=== PATIENT | female | born 1990 | race African-American/Black ===

== ENCOUNTER → 2018-07-27 | Outpatient (CLI) | payer SELFPAY | LOC: RAD 09:06 | DX: M25.531 Pain in right wrist (principal) ==

== ENCOUNTER 2018-12-06 11:12 | Emergency (ER) | payer BC ==
[~2018-12-06 11:12] MED LIST: CEFDINIR300 MG PO; NORCO 325 MG-51 TA1 PO; PREDNISONE20 M1 PO
[2018-12-06 12:16] VITALS: BP 148/68
== END 2018-12-06 12:15 | disposition home or self-care (01) ==
LOC: ED 11:12
DX: S93.401A Sprain of unspecified ligament of right ankle, initial encounter (principal); X50.1XXA Overexertion from prolonged static or awkward postures, initial encounter; Y93.02 Activity, running
CPT/HCPCS: L4386

== ENCOUNTER 2019-03-18 08:38 | Emergency (ER) | payer BC ==
[~2019-03-18] VITALS: Ht 182.9 cm; Wt 74.1 kg
[2019-03-18 09:28] LABS: HEMATOCRIT 28.1 % (37.0-47.0); HEMOGLOBIN 8.1 g/dL (12.5-16.0); MEAN CELL VOLUME 72 fl (78-100); MEAN PLATELET VOLUME 10.5 fl (7.4-10.4); PLATELET COUNT 359 K/mm3 (130-400); RED BLOOD COUNT 3.88 M/mm3 (4.10-5.30); RED CELL DISTRIBUTION WIDTH 16.2 % (11.5-14.5); WHITE BLOOD COUNT 3.2 K/mm3 (4.8-10.8)
[2019-03-18 09:35] LABS: MEAN CORPUSCULAR HEMOGLOBIN 21 pg (27-31); MEAN CORPUSCULAR HGB CONC 29 g/dL (33-37)
[2019-03-18 09:40] LABS: ALBUMIN 4.3 g/dL (3.5-5.0); POTASSIUM 3.7 mmol/L (3.5-5.1)
[2019-03-18 09:43] LABS: CALCIUM 8.9 mg/dL (8.3-10.5)
[2019-03-18 09:45] LABS: TOTAL BILIRUBIN 0.2 mg/dL (0.2-1.2)
[2019-03-18 10:18] LABS: LYMPHOCYTE 20 % (20-51); MONOCYTE 17 % (3-10); NEUTROPHILS 62 % (42-75)
[2019-03-18 10:19] LABS: HYPOCHROMIA 2+; MICROCYTOSIS 2+; OVALOCYTES 2+; SCHISTOCYTES 1+; TEAR DROP CELLS 1+
[2019-03-18 10:33] LABS: ERYTHROCYTE SEDIMENTATION RATE 13 mm/hr (0-20)
[2019-03-18 10:56] LABS: URINE APPEARANCE CLOUDY; URINE BILIRUBIN NEGATIVE (NEGATIVE); URINE BLOOD NEGATIVE (NEGATIVE); URINE COLOR YELLOW; URINE GLUCOSE NEGATIVE (NEGATIVE); URINE KETONE NEGATIVE (NEGATIVE); URINE LEUKOCYTE ESTERASE TRACE (NEGATIVE); URINE MUCUS PRESENT (NOT PRESENT); URINE NITRATE NEGATIVE (NEGATIVE); URINE PROTEIN(semi-quant) TRACE mg/dL (NEGATIVE); URINE UROBILINOGEN NORMAL (NORMAL)
[2019-03-18 16:01] VITALS: BP 117/60
== END 2019-03-18 15:48 | disposition short-term general hospital (02) ==
LOC: ED 08:38
PROVIDERS: Nurse Practitioner Family
DX: D64.9 Anemia, unspecified (principal); E05.90 Thyrotoxicosis, unspecified without thyrotoxic crisis or storm; R52 Pain, unspecified; F17.210 Nicotine dependence, cigarettes, uncomplicated; Z88.6 Allergy status to analgesic agent
CPT/HCPCS: J0595; J7030

== ENCOUNTER → 2019-03-22 | Outpatient (CLI) | payer BC ==
[2019-03-18 16:01] VITALS: BP 117/60
[2019-03-22 13:19] LABS: EOS % 0.9 % (1.0-5.0); HEMOGLOBIN 9.4 g/dL (12.5-16.0); LYMPH# 0.9 (1.50-4.00); MEAN CELL VOLUME 72 fl (78-100); MEAN PLATELET VOLUME 10.2 fl (7.4-10.4); MONO # 0.5 (0.20-0.80); NEU # 3.1 (1.40-6.50); PLATELET COUNT 278 K/mm3 (130-400); RED BLOOD COUNT 4.58 M/mm3 (4.10-5.30); RED CELL DISTRIBUTION WIDTH 16.6 % (11.5-14.5); WHITE BLOOD COUNT 4.6 K/mm3 (4.8-10.8)
[2019-03-22 13:34] LABS: MEAN CORPUSCULAR HEMOGLOBIN 21 pg (27-31); MEAN CORPUSCULAR HGB CONC 29 g/dL (33-37)
[2019-03-22 13:37] LABS: ALBUMIN 4.5 g/dL (3.5-5.0); POTASSIUM 3.7 mmol/L (3.5-5.1)
[2019-03-22 13:38] LABS: CALCIUM 9.6 mg/dL (8.3-10.5)
[2019-03-22 13:40] LABS: TOTAL PROTEIN 7.9 g/dL (6.4-8.3)
[2019-03-22 13:41] LABS: TOTAL BILIRUBIN 0.2 mg/dL (0.2-1.2)
[2019-03-22 14:01] LABS: D-DIMER 0.1 mg/L FEU (0.15-0.50)
== END ==
LOC: LAB 12:58
PROVIDERS: Physician Assistant
DX: R06.02 Shortness of breath (principal)

== ENCOUNTER 2019-06-06 14:54 | Outpatient (RCR) | payer BC ==
[2019-05-05 17:34] VITALS: BP 118/62
[2019-05-05 18:51] VITALS: BP 122/59
[2019-05-12 17:41] VITALS: BP 140/81
[2019-05-12 19:00] VITALS: BP 116/62
[2019-05-19 17:39] VITALS: BP 118/68
[2019-05-19 18:50] VITALS: BP 129/61
[2019-05-26 17:45] VITALS: BP 111/51
[2019-05-26 18:15] VITALS: BP 103/52
[2019-05-26 18:53] VITALS: BP 110/62
[~2019-06-06] VITALS: Ht 182.9 cm; Wt 74.1 kg
[2019-06-06 15:14] VITALS: BP 116/59
[2019-06-06 16:20] VITALS: BP 116/76
== END 2019-08-03 | disposition still patient (30) ==
LOC: AMSURD
DX: D50.0 Iron deficiency anemia secondary to blood loss (chronic) (principal); Z79.899 Other long term (current) drug therapy
CPT/HCPCS: J2916; J7050

== ENCOUNTER → 2020-01-03 | Outpatient (CLI) | payer BC ==
[~2020-01-03] MED LIST changes: +NAPROSYN500 M1 PO
[2020-01-03 11:37] LABS: HEMATOCRIT 38.9 % (37.0-47.0); HEMOGLOBIN 11.8 g/dL (12.5-16.0); RED BLOOD COUNT 4.64 M/mm3 (4.10-5.30); RED CELL DISTRIBUTION WIDTH 13.3 % (11.5-14.5); WHITE BLOOD COUNT 4.5 K/mm3 (4.8-10.8)
== END ==
LOC: LAB 11:23
PROVIDERS: Family Medicine
DX: D50.9 Iron deficiency anemia, unspecified (principal); M25.562 Pain in left knee; M25.552 Pain in left hip

== ENCOUNTER → 2020-01-19 | Outpatient (CLI) | payer BC ==
[~2020-01-19] MED LIST changes: -NAPROSYN500 M1 PO
== END ==
LOC: RAD 08:30
DX: M81.8 Other osteoporosis without current pathological fracture (principal); M25.562 Pain in left knee; M25.552 Pain in left hip; M25.551 Pain in right hip

== ENCOUNTER → 2020-01-25 | Outpatient (CLI) | payer BC | LOC: RAD 09:15 | DX: M51.17 Intervertebral disc disorders with radiculopathy, lumbosacral region (principal) ==

== ENCOUNTER 2020-03-10 14:59 | Outpatient (RCR) | payer BC ==
[2020-02-24 17:38] VITALS: BP 153/67
[~2020-03-10] VITALS: Ht 182.9 cm; Wt 74.1 kg
[2020-03-10 15:20] VITALS: BP 122/59
[2020-03-10] MEDS ORDERED: NAPROSYN500 M1 PO (15:29)
[2020-03-10 16:35] VITALS: BP 119/55
== END 2020-03-20 | disposition home or self-care (01) ==
LOC: AMSURD
DX: D50.0 Iron deficiency anemia secondary to blood loss (chronic) (principal); Z79.899 Other long term (current) drug therapy
CPT/HCPCS: J2916; J7050

== ENCOUNTER 2020-03-10 17:29 | Emergency (ER) | payer BC ==
[~2020-03-10] VITALS: Ht 182.9 cm; Wt 69.5 kg
[~2020-03-10 17:29] MED LIST changes: +NAPROSYN500 M1 PO
[2020-03-10 18:24] LABS: EOS % 0.5 % (1.0-5.0); HEMATOCRIT 41.7 % (37.0-47.0); HEMOGLOBIN 12.6 g/dL (12.5-16.0); LYMPH# 1.8 (1.50-4.00); MEAN CELL VOLUME 79 fl (78-100); MEAN CORPUSCULAR HGB CONC 30 g/dL (33-37); MONO # 0.6 (0.20-0.80); NEU # 3.3 (1.40-6.50); PLATELET COUNT 348 K/mm3 (130-400); RED BLOOD COUNT 5.28 M/mm3 (4.10-5.30); WHITE BLOOD COUNT 5.7 K/mm3 (4.8-10.8)
[2020-03-10 18:29] LABS: MEAN CORPUSCULAR HEMOGLOBIN 24 pg (27-31); RED CELL DISTRIBUTION WIDTH 18.6 % (11.5-14.5)
[2020-03-10 18:34] LABS: ALBUMIN 4.6 g/dL (3.5-5.0)
[2020-03-10 18:35] LABS: POTASSIUM 4.1 mmol/L (3.5-5.1)
[2020-03-10 18:36] LABS: CALCIUM 9.7 mg/dL (8.3-10.5)
[2020-03-10 18:37] LABS: TOTAL PROTEIN 7.5 g/dL (6.4-8.3)
[2020-03-10 18:39] LABS: TOTAL BILIRUBIN 0.2 mg/dL (0.2-1.2)
[2020-03-10 18:40] LABS: PROTHROMBIN TIME 9.3 SECONDS (9.0-12.0)
[2020-03-10 18:45] LABS: MAGNESIUM 1.99 mg/dL (1.60-2.60)
[2020-03-10 19:41] VITALS: BP 127/72
== END 2020-03-10 19:42 | disposition home or self-care (01) ==
LOC: ED 17:29
PROVIDERS: Nurse Practitioner Family
DX: D50.9 Iron deficiency anemia, unspecified (principal); Z88.0 Allergy status to penicillin; Z88.6 Allergy status to analgesic agent; Z79.1 Long term (current) use of non-steroidal anti-inflammatories (NSAID)
CPT/HCPCS: J2270; J7030

== ENCOUNTER → 2020-08-23 | Outpatient (CLI) | payer BC | LOC: VAS 15:49 | DX: M79.662 Pain in left lower leg (principal) ==

== ENCOUNTER 2020-10-31 15:49 | Emergency (ER) | payer BC ==
[~2020-10-31] VITALS: Ht 182.9 cm; Wt 70.9 kg
[2020-10-31 16:15] VITALS: BP 122/73
== END 2020-10-31 17:08 | disposition left against medical advice (07) ==
LOC: ED 15:49
DX: R05 Cough (principal); R53.81 Other malaise; F17.210 Nicotine dependence, cigarettes, uncomplicated; Z86.19 Personal history of other infectious and parasitic diseases

== ENCOUNTER → 2020-10-31 | Outpatient (CLI) | payer BC | LOC: LAB 12:34 | DX: Z20.822 Contact with and (suspected) exposure to COVID-19 (principal) ==

== ENCOUNTER → 2020-12-20 | Outpatient (CLI) | payer BC | LOC: RAD 07:30 | DX: M17.12 Unilateral primary osteoarthritis, left knee (principal) ==

== ENCOUNTER → 2021-03-22 | Outpatient (CLI) | payer BC | LOC: LAB 15:17 | DX: Z20.822 Contact with and (suspected) exposure to COVID-19 (principal) ==

== ENCOUNTER 2021-03-29 11:06 | Emergency (ER) | payer BC ==
[~2021-03-29] VITALS: Wt 73.5 kg
[2021-03-29 11:46] LABS: BASO # 0.03 K/mm3 (0.02-0.10); EOS # 0.04 K/mm3 (0.04-0.40); EOS % 0.8 % (1.0-5.0); HEMATOCRIT 42.5 % (37.0-47.0); HEMOGLOBIN 13.7 g/dL (12.5-16.0); LYMPH# 1.33 K/mm3 (1.50-4.00); MEAN CELL VOLUME 91 fl (78-100); MEAN CORPUSCULAR HEMOGLOBIN 29 pg (27-31); MEAN CORPUSCULAR HGB CONC 32 g/dL (33-37); MEAN PLATELET VOLUME 10.9 fl (7.4-10.4); MONO # 0.47 K/mm3 (0.20-0.80); NEU # 3.35 K/mm3 (1.40-6.50); PLATELET COUNT 268 K/mm3 (130-400); RED BLOOD COUNT 4.67 M/mm3 (4.10-5.30); RED CELL DISTRIBUTION WIDTH 14.5 % (11.5-14.5); WHITE BLOOD COUNT 5.2 K/mm3 (4.8-10.8)
[2021-03-29 11:55] LABS: ALBUMIN 4.4 g/dL (3.5-5.0)
[2021-03-29 11:56] LABS: POTASSIUM 3.5 mmol/L (3.5-5.1)
[2021-03-29 11:58] LABS: TOTAL PROTEIN 7.5 g/dL (6.4-8.3)
[2021-03-29 12:00] LABS: TOTAL BILIRUBIN 0.2 mg/dL (0.2-1.2)
[2021-03-29 13:10] VITALS: BP 133/77
== END 2021-03-29 13:10 | disposition home or self-care (01) ==
LOC: ED 11:06
PROVIDERS: Family Medicine
DX: R05.9 Cough, unspecified (principal)
CPT/HCPCS: Q0177

== ENCOUNTER → 2022-01-02 | Outpatient (CLI) | payer BC | LOC: LAB 09:23 | DX: M25.50 Pain in unspecified joint (principal) ==

== ENCOUNTER → 2022-01-17 | Outpatient (CLI) | payer BC ==
[2022-01-22 15:03] LABS: HEMOGLOBIN A 97.8 % (())
== END ==
LOC: LAB 09:50
PROVIDERS: Family Medicine
DX: D50.9 Iron deficiency anemia, unspecified (principal)

== ENCOUNTER 2022-01-23 16:28 | Outpatient (RCR) | payer BC ==
[2022-01-17 17:20] VITALS: BP 121/66
[~2022-01-23] VITALS: Wt 73.5 kg
[2022-01-23 16:48] VITALS: BP 114/57
== END 2022-02-13 | disposition home or self-care (01) ==
LOC: AMSURD
DX: Z79.899 Other long term (current) drug therapy (principal)
CPT/HCPCS: J1100; J1756; J3490

== ENCOUNTER → 2022-05-29 | Outpatient (CLI) | payer BC ==
[~2022-05-29] VITALS: Wt 65.9 kg
[2022-05-29 11:13] VITALS: BP 119/52
[2022-05-29 11:56] VITALS: BP 111/50
== END ==
LOC: AMSURD 11:01
DX: D50.0 Iron deficiency anemia secondary to blood loss (chronic) (principal)
CPT/HCPCS: J1100; J1200; J1756

== ENCOUNTER 2022-10-17 15:56 | Outpatient (RCR) | payer BC ==
[~2022-10-17] VITALS: Ht 182.9 cm; Wt 65.0 kg
[~2022-10-17 15:56] MED LIST changes: +NAPROXEN500 MG PO; +PROAIR DIGIHAL90 MCG IH
[2022-10-17 16:05] VITALS: BP 123/55
== END 2022-11-14 | disposition home or self-care (01) ==
LOC: AMSURD
DX: D50.0 Iron deficiency anemia secondary to blood loss (chronic) (principal)
CPT/HCPCS: J1100; J1200; J1756

== ENCOUNTER → 2022-11-28 | Outpatient (CLI) | payer BC ==
[2022-11-28 16:54] LABS: BASO # 0.03 K/mm3 (0.02-0.10); EOS # 0.05 K/mm3 (0.04-0.40); HEMATOCRIT 39.9 % (37.0-47.0); HEMOGLOBIN 12.9 g/dL (12.5-16.0); LYMPH# 1.62 K/mm3 (1.50-4.00); MEAN CELL VOLUME 94 fl (78-100); MEAN CORPUSCULAR HEMOGLOBIN 30 pg (27-31); MEAN CORPUSCULAR HGB CONC 32 g/dL (33-37); MEAN PLATELET VOLUME 10.2 fl (7.4-10.4); MONO # 0.31 K/mm3 (0.20-0.80); NEU # 2.96 K/mm3 (1.40-6.50); PLATELET COUNT 281 K/mm3 (130-400); RED BLOOD COUNT 4.26 M/mm3 (4.10-5.30); RED CELL DISTRIBUTION WIDTH 13.9 % (11.5-14.5)
[2022-11-28 16:58] LABS: ALBUMIN 4.5 g/dL (3.5-5.0); POTASSIUM 3.4 mmol/L (3.5-5.1)
[2022-11-28 17:00] LABS: CALCIUM 9.6 mg/dL (8.3-10.5)
[2022-11-28 17:03] LABS: TOTAL BILIRUBIN 0.2 mg/dL (0.2-1.2)
[2022-11-28 17:18] LABS: PROTHROMBIN TIME 10.4 SECONDS (9.0-12.0)
[2022-11-28 17:41] LABS: URINE APPEARANCE HAZY; URINE COLOR YELLOW; URINE GLUCOSE NEGATIVE (NEGATIVE); URINE KETONE NEGATIVE (NEGATIVE); URINE PROTEIN(semi-quant) TRACE (NEGATIVE)
[2022-11-28 17:42] LABS: URINE BILIRUBIN NEGATIVE (NEGATIVE); URINE BLOOD 250 ery/uL (NEGATIVE); URINE LEUKOCYTE ESTERASE NEGATIVE (NEGATIVE); URINE NITRATE NEGATIVE (NEGATIVE); URINE UROBILINOGEN NORMAL (NORMAL); URINE WBC 0-1 /hpf (0-3)
[2022-11-28 17:43] LABS: URINE MUCUS PRESENT (NOT PRESENT)
== END ==
LOC: LAB 16:15
PROVIDERS: Nurse Practitioner
DX: Z01.818 Encounter for other preprocedural examination (principal); J45.20 Mild intermittent asthma, uncomplicated

== ENCOUNTER 2023-03-11 15:47 | Outpatient (RCR) | payer BC ==
[2023-03-04 16:38] VITALS: BP 137/77
[2023-03-04 17:00] VITALS: BP 137/67
[~2023-03-11] VITALS: Ht 182.9 cm; Wt 63.0 kg
[2023-03-11 16:18] VITALS: BP 137/67
[2023-03-11 17:24] VITALS: BP 125/84
== END 2023-03-16 | disposition home or self-care (01) ==
LOC: AMSURD
DX: D50.0 Iron deficiency anemia secondary to blood loss (chronic) (principal)
CPT/HCPCS: J1100; J1200; J1756

== ENCOUNTER 2023-04-01 15:30 | Outpatient (RCR) | payer BC ==
[2023-03-18 16:13] VITALS: BP 123/78
[~2023-04-01] VITALS: Ht 182.9 cm; Wt 63.0 kg
[~2023-04-01 15:30] MED LIST changes: +Iron Sucrose 200 MG in NS 100 ML Over 15 minutes IV ONE; +dexAMETHasone 4 MG/ML VIAL IV ONE
[2023-04-01] MEDS ORDERED: Iron Sucrose 200 MG in NS 100 ML Over 15 minutes IV ONE (16:00)
[2023-04-01] MEDS ORDERED: diphenhydrAMINE 50 MG/ML 1 ML VIAL IJ ONE (16:00)
[2023-04-01] MEDS ORDERED: dexAMETHasone 4 MG/ML VIAL IV ONE (16:00)
[2023-04-01 16:42] VITALS: BP 129/64
== END 2023-04-16 | disposition home or self-care (01) ==
LOC: AMSURD
DX: D50.0 Iron deficiency anemia secondary to blood loss (chronic) (principal)
CPT/HCPCS: J1100; J1200; J1756

== ENCOUNTER → 2023-07-10 | Outpatient (CLI) | payer BC ==
[~2023-07-10] MED LIST changes: -Iron Sucrose 200 MG in NS 100 ML Over 15 minutes IV ONE; -dexAMETHasone 4 MG/ML VIAL IV ONE
[2023-07-10 10:49] LABS: ALBUMIN 4.4 g/dL (3.5-5.0)
[2023-07-10 10:51] LABS: CALCIUM 9.6 mg/dL (8.3-10.5)
[2023-07-10 10:52] LABS: TOTAL PROTEIN 6.6 g/dL (6.4-8.3)
[2023-07-10 10:54] LABS: TOTAL BILIRUBIN 0.5 mg/dL (0.2-1.2)
== END ==
LOC: LAB 10:23
PROVIDERS: Nurse Practitioner
DX: L81.9 Disorder of pigmentation, unspecified (principal)